=== PATIENT | female | born 1955 | race African-American/Black ===

== ENCOUNTER 2020-11-22 11:29 | Emergency (ER) | payer OTHER ==
[~2020-11-22] VITALS: Ht 170.2 cm; Wt 95.7 kg
[2020-11-22 12:14] LABS: ABSOLUTE BASOPHILS 0.1 thou/uL (0.0-0.2); ABSOLUTE EOSINOPHILS 0.2 thou/uL (0.0-0.7); ABSOLUTE LYMPHOCYTES 1.7 thou/uL (0.8-5.3); ABSOLUTE MONOCYTES 0.3 thou/uL (0.0-1.2); ABSOLUTE NEUTROPHILS 2.2 thou/uL (1.6-8.1); BASOPHILS 1.4 %; EOSINOPHILS 4.7 %; HEMOGLOBIN 12.7 gm/dL (12.0-15.0); LYMPHOCYTES 39.1 %; MCH 29.3 pg (26.0-34.0); MCHC 33.4 g/dL (28.0-37.0); MCV 87.5 fL (80.0-100.0); MONOCYTES 6.2 %; MPV 8.4 fl. (7.2-11.1); NUCLEATED RBCS 0 /100WBC; PLATELET COUNT* 209 thou/uL (150-400); POLYS 48.6 %; RBC 4.35 mil/uL (4.20-5.00); RDW-CV 14.6 % (10.5-14.5); WBC 4.4 thou/uL (4.0-11.0)
[2020-11-22 12:28] LABS: ALBUMIN 3.9 g/dL (3.4-5.0); CALCIUM 9.3 mg/dL (8.5-10.1); CREATININE 0.7 mg/dL (0.6-1.3); POTASSIUM 4.1 mmol/L (3.5-5.1); TOTAL BILIRUBIN 0.5 mg/dL (<0.1-1.0); TOTAL PROTEIN 8.5 g/dL (6.4-8.2)
[2020-11-22] MEDS ORDERED: IBUPROFEN 800800 M1 PO (12:37)
[2020-11-22 12:56] VITALS: BP 191/92
--- NOTE | 2020-11-23 14:12 | EKG ---
[place] [address] ELECTROCARDIOGRAM REPORT Name: DIANA PATEL Room: [facility]#: [id number] Admission: 11/22/20 Attend Phys: Discharge: 11/22/20 Date of : 55 Date of Service: 11/22/20 1156 Report #: [id number] THIS REPORT FOR: //name// [facility] ED Test Date: 2020-11-22 Test Time: 11:56:53 Pat Name: DIANA ALFARO Department: Room: Gender: Film Numberer: : 1955 Requested By: Mario Steward Order Number: [id number] MD: John Larson Measurements Intervals Bernice Rate: 79 P: 5 PA: 176 QRS: -9 QRSD: 89 T: 26 QT: 396 QTc: 455 Interpretive Statements Sinus rhythm Abnormal R-wave progression, early transition Left ventricular hypertrophy, by voltage No previous ECG available for comparison Electronically Signed On 11-23-2020 14:12:47 CDT by John Larson [email or web address] <ELECTRONICALLY SIGNED> By: John Larson MD, FACC 11/23/20 1412 1156 1156 John Larson MD, [facility] /EPI
== END 2020-11-22 12:50 | disposition home or self-care (01) ==
LOC: M.ERS 11:29
PROVIDERS: Emergency Medicine Emergency Medical Services
DX: G56.22 Lesion of ulnar nerve, left upper limb (principal); I10 Essential (primary) hypertension